=== PATIENT | male | born 1960 | race Caucasian/White ===

== ENCOUNTER 2017-10-30 03:57 | Emergency (ER) | payer BC ==
[2017-10-30] MEDS ORDERED: HYDROCODONE/APAP 5/325 MG TAB ONE (04:19)
--- NOTE | 2017-10-30 04:48 | EDPHYS ---
Physician Documentation [facility] Name: Guillermo Gibson Age: 57 yrs Sex: Male : 1960 Arrival Date: 10/30/2017 Time: 04:00 Bed 19 Private MD: ED Physician Patrice Sims HPI: 10/30 06:26 This 57 yrs old Male presents to ER via EMS with complaints of Ankle Injury. gs 06:26 The patient presents with a deformity, an injury. The complaints affect the right gs ankle. Onset: The symptoms/episode began/occurred acutely, just prior to arrival. Context: denies falling says just heard pop The patient is unable to bear weight. Associated signs and symptoms: Pertinent negatives: numbness, tingling. Modifying factors: The symptoms are alleviated by nothing, the symptoms are aggravated by weight bearing, movement. Severity of symptoms: At their worst the symptoms were severe, in the emergency department the symptoms are unchanged. The patient has not experienced similar symptoms in the past. The patient has not recently seen a physician. Historical: - Allergies: 04:04 No Known Allergies; tl1 - Home Meds: 04:04 amlodipine oral [Active]; Nexium Oral [Active]; tl1 - PMHx: 04:04 GERD; Hypertension; tl1 - PSHx: 04:04 Hernia repair; tl1 - Immunization history:: Adult Immunizations up to date, Last tetanus immunization: up to date. - Social history:: Smoking status: Patient uses tobacco products, denies chronic smoking, but will smoke occasionally, Patient uses alcohol, weekly. - Ebola Screening: : Patient negative for fever greater than or equal to 101.5 degrees Fahrenheit, and additional compatible Ebola Virus Disease symptoms Patient denies exposure to infectious person Patient denies travel to an Ebola-affected area in the 21 days before illness onset. ROS: 06:26 All other systems are negative. gs Exam: 06:26 Head/Face: Normocephalic, atraumatic. Eyes: Pupils equal round and reactive to light, gs extra-ocular motions intact. Lids and lashes normal. Conjunctiva and sclera are non-icteric and not injected. Cornea within normal limits. Periorbital areas with no swelling, redness, or edema. ENT: Nares patent. No nasal discharge, no septal abnormalities noted. Tympanic membranes are normal and external auditory canals are clear. Oropharynx with no redness, swelling, or masses, exudates, or evidence of obstruction, uvula midline. Mucous membranes moist. Neck: Trachea midline, no thyromegaly or masses palpated, and no cervical lymphadenopathy. Supple, full range of motion without nuchal rigidity, or vertebral point tenderness. No Meningismus. Chest/axilla: Normal chest wall appearance and motion. Nontender with no deformity. No lesions are appreciated. Cardiovascular: Regular rate and rhythm with a normal S1 and S2. No gallops, murmurs, or rubs. Normal PMI, no JVD. No pulse deficits. Respiratory: Lungs have equal breath sounds bilaterally, clear to auscultation and percussion. No rales, rhonchi or wheezes noted. No increased work of breathing, no retractions or nasal flaring. Abdomen/GI: Soft, non-tender, with normal bowel sounds. No distension or tympany. No guarding or rebound. No evidence of tenderness throughout. Back: No spinal tenderness. No costovertebral tenderness. Full range of motion. Neuro: Awake and alert, GCS 15, oriented to person, place, time, and situation. Cranial nerves II-XII grossly intact. Motor strength 5/5 in all extremities. Sensory grossly intact. Cerebellar exam normal. Normal gait. 06:26 Constitutional: The patient appears alert, awake, smells of alcohol, ETOH. 06:26 Musculoskeletal/extremity: Pulses: are normal with no appreciated deficits, Joints: the right ankle displays deformity, effusion, painful range of motion, swelling, tenderness. 06:26 Skin: injury, abrasion(s), small abrasion noted, of the right knee. Vital Signs: 04:05 BP 135 / 78; Pulse 89; Resp 16; Temp 98(O); Pulse Ox 98% ; Weight 91.63 kg; Height 5 tl1 ft. 7 in. (170.18 cm); Pain 6/10; 05:25 BP 127 / 78; Pulse 79; Resp 16; Temp 98; Pulse Ox 98% ; Pain 5/10; tl1 04:05 Body Mass Index 31.64 (91.63 kg, 170.18 cm) tl1 Procedures: 06:26 Splinting: Splint applied to right ankle using Orthoglass splint, applied by techIgnacia mcgovern Examined by me, post splint application: neurovascular intact, 2+ distal pulses palpable, brisk capillary refill noted, Patient tolerated well. MDM: 04:01 Patient medically screened. 06:26 Differential diagnosis: fracture, sprain. Data reviewed: vital signs, nurses notes. Counseling: I had a detailed discussion with the patient and/or guardian regarding: the historical points, exam findings, and any diagnostic results supporting the discharge/admit diagnosis, radiology results. 10/30 04:48 Order name: Ankle Right 2 View EDOK 10/30 04:01 Order name: Splint - Ankle: Orthoglass: Stirrup; Complete Time: 05:27 gs 10/30 05:28 Order name: Crutch Training; Complete Time: 05:28 tl1 10/30 05:28 Order name: Crutches; Complete Time: 05:28 tl1 Administered Medications: 04:15 Drug: [place] 5 mg-325 mg 1 tabs Route: PO; tl1 05:26 Follow up: Response: No adverse reaction; Pain is decreased tl1 Disposition: 10/30/17 04:48 Discharged to Home. Impression: Bimalleolar fracture of lower leg. - Condition is Stable. - Discharge Instructions: Nondisplaced Bimalleolar Ankle Fracture Treated With Immobilization. - Prescriptions for Tylenol- Codeine #4 300-60 mg Oral Tablet - take 1 tablet by ORAL route every 6 hours As needed; 12 tablet. - Medication Reconciliation Form, Thank You Letter, Antibiotic Education, Prescription Opioid Use form. - Follow up: Guillermo Calvo MD; When: 2 - 3 days; Reason: Re-evaluation by your physician. Signatures: Dispatcher [employer] [facility] Cyndy Hernandez RN RN tl1 Patrice Sims MD MD Corrections: (The following items were deleted from the chart) 04:48 04:02 Ankle Right 3 View+RAD.[email or web address] ordered. [facility] 05:26 04:48 10/30/2017 04:48 Discharged to Home. Impression: Bimalleolar fracture of lower tl1 leg. Condition is Stable. Forms are Medication Reconciliation Form, Thank You Letter, Antibiotic Education, Prescription Opioid Use. Follow up: Guillermo Calvo; When: 2 - 3 days; Reason: Re-evaluation by your physician. 05:29 05:26 10/30/2017 04:48 Discharged to Home. Impression: Bimalleolar fracture of lower tl1 leg. Condition is Stable. Discharge Instructions: Nondisplaced Bimalleolar Ankle Fracture Treated With Immobilization. Prescriptions for Tylenol-Codeine #4 300-60 mg Oral Tablet - take 1 tablet by ORAL route every 6 hours As needed; 12 tablet. and Forms are Medication Reconciliation Form, Thank You Letter, Antibiotic Education, Prescription Opioid Use. Follow up: Guillermo Calvo; When: 2 - 3 days; Reason: Re-evaluation by your physician. tl1
--- NOTE | 2017-10-30 04:48 | ER ---
Nurse's Notes [facility] Name: Guillermo Gibson Age: 57 yrs Sex: Male : 1960 Arrival Date: 10/30/2017 Time: 04:00 Bed 19 Private MD: Diagnosis: Bimalleolar fracture of lower leg Presentation: 10/30 04:00 Presenting complaint: Patient states: I was fogging for mosquitos at my [employer] and I tl1 felt a snap and pain in my right ankle . Pt denies any type off fall prior to the pain in his right ankle. Transition of care: patient was not received from another setting of care. Onset of symptoms was October 30, 2017. Risk Assessment: Do you want to hurt yourself or someone else? Patient reports no desire to harm self or others. Initial Sepsis Screen: Does the patient meet any 2 criteria? No. Patient's initial sepsis screen is negative. Does the patient have a suspected source of infection? No. Patient's initial sepsis screen is negative. Care prior to arrival: None. 04:00 Method Of Arrival: EMS: [facility] tl1 04:00 Acuity: [place] 4 tl1 Historical: - Allergies: 04:04 No Known Allergies; tl1 - Home Meds: 04:04 amlodipine oral [Active]; Nexium Oral [Active]; tl1 - PMHx: 04:04 GERD; Hypertension; tl1 - PSHx: 04:04 Hernia repair; tl1 - Immunization history:: Adult Immunizations up to date, Last tetanus immunization: up to date. - Social history:: Smoking status: Patient uses tobacco products, denies chronic smoking, but will smoke occasionally, Patient uses alcohol, weekly. - Ebola Screening: : Patient negative for fever greater than or equal to 101.5 degrees Fahrenheit, and additional compatible Ebola Virus Disease symptoms Patient denies exposure to infectious person Patient denies travel to an Ebola-affected area in the 21 days before illness onset. Screenin:09 Abuse screen: Denies threats or abuse. Denies injuries from another. Nutritional tl1 screening: No deficits noted. Tuberculosis screening: No symptoms or risk factors identified. Fall Risk Gait- Impaired (20 pts.). Assessment: 04:06 General: Appears in no apparent distress. Behavior is calm, cooperative, Smells of tl1 alcohol. Pain: Complains of pain in anterior aspect of right ankle Pain currently is 6 out of 10 on a pain scale. Neuro: Level of Consciousness is awake, alert, obeys commands, Oriented to person, place, time, situation. Cardiovascular: Denies chest pain. Respiratory: Airway is patent Trachea midline Respiratory effort is even, unlabored, Breath sounds are clear bilaterally. GI: No signs and/or symptoms were reported involving the gastrointestinal system. : No signs and/or symptoms were reported regarding the genitourinary system. EENT: No signs and/or symptoms were reported regarding the EENT system. Musculoskeletal: Circulation, motion, and sensation intact. Capillary refill < 3 seconds, Swelling present in right ankle and anterior aspect of right ankle Reports pain in anterior aspect of right ankle. Injury Description: Abrasion sustained to right knee. 05:24 Reassessment: Patient and/or family updated on plan of care and expected duration. Pain tl1 level reassessed. Patient is alert, oriented x 3, equal unlabored respirations, skin warm/dry/pink. Patient states feeling better. Patient states symptoms have improved. Vital Signs: 04:05 BP 135 / 78; Pulse 89; Resp 16; Temp 98(O); Pulse Ox 98% ; Weight 91.63 kg; Height 5 tl1 ft. 7 in. (170.18 cm); Pain 6/10; 05:25 BP 127 / 78; Pulse 79; Resp 16; Temp 98; Pulse Ox 98% ; Pain 5/10; tl1 04:05 Body Mass Index 31.64 (91.63 kg, 170.18 cm) tl1 ED Course: 04:00 Patient arrived in ED. rg2 04:00 Cyndy Hernandez RN is Primary Nurse. tl1 04:01 Patrice Sims MD is Attending Physician. gs 04:03 Triage completed. tl1 04:05 Arm band placed on right wrist. tl1 04:05 Bed in low position. Call light in reach. Side rails up X 1. Adult w/ patient. tl1 04:47 Guillermo Calvo MD is Referral Physician. gs 04:48 Ankle Right 2 View In Process Unspecified. EDMS 05:22 No provider procedures requiring assistance completed. Patient did not have IV access tl1 during this emergency room visit. Crutch training done. Orthoglass splint: stirrup splint applied on right leg. 05:27 Primary Nurse role handed off by Cyndy Hernandez RN tl1 05:27 Cyndy Hernandez RN is Primary Nurse. tl1 Administered Medications: 04:15 Drug: Daisy 5 mg-325 mg 1 tabs Route: PO; tl1 05:26 Follow up: Response: No adverse reaction; Pain is decreased tl1 Outcome: 04:48 Discharge ordered by . 05:24 Discharged to home via wheelchair, with crutches, with family. tl1 05:24 Condition: good 05:24 Discharge instructions given to patient, family, Instructed on discharge instructions, follow up and referral plans. no drinking with medication, no driving heavy equipment, medication usage, crutch walking, Demonstrated understanding of instructions, follow-up care, medications, crutch walking, splint care, Prescriptions given X 1. 05:26 Patient left the ED. tl1 05:29 Patient left the ED. tl1 Signatures: Dispatcher [employer] EDMS Leticia Gay rg2 Cyndy Hernandez RN RN tl1 Patrice Sims MD MD
--- NOTE | 2017-10-30 08:35 | RAD REPORT ---
EXAM DESCRIPTION: RAD - Ankle Right 2 View - 10/30/2017 4:48 am CLINICAL HISTORY: Trauma, ankle pain COMPARISON: None. FINDINGS: Oblique fracture is present through the distal fibula at the level of the tibiotalar joint line. Approximately 2 mm posterior and lateral displacement of the distal fibula fracture fragment. There is slight angulation laterally as well. Transverse fracture of the medial malleolus is present with the dome of the talus retaining the distal medial malleolus fracture fragment. The dome of the t alus is displaced laterally 8 mm. Posterior malleolus fracture is not confirmed. Prominent anterior and lateral soft tissue swelling present. No foreign body. IMPRESSION: Ankle bimalleolar fracture as detailed.
== END 2017-10-30 05:29 | disposition home or self-care (01) ==
LOC: ER 03:57
PROC: 2W3QX1Z Immobilization of Right Lower Leg using Splint (ICD-10-PCS; principal; 2017-10-30)
DX: S82.841A Displaced bimalleolar fracture of right lower leg, initial encounter for closed fracture (principal); I10 Essential (primary) hypertension; K21.9 Gastro-esophageal reflux disease without esophagitis; Z72.0 Tobacco use
CPT/HCPCS: 99284